=== PATIENT | male | born 1960 | race Caucasian/White ===

== ENCOUNTER 2019-05-20 09:00 | Outpatient (RCR) | payer OTHER, SELFPAY | END 2019-05-23 23:59 | LOC: DC 09:00 | PROVIDERS: PCP Family Medicine; Visit Provider Family Medicine | DX: Z71.3 Dietary counseling and surveillance (principal); E11.65 Type 2 diabetes mellitus with hyperglycemia | CPT/HCPCS: 97802; G0108 ==

== ENCOUNTER → 2022-04-23 | Outpatient (CLI) | payer OTHER, SELFPAY | END | disposition home or self-care (01) | PROVIDERS: PCP Family Medicine; Referring Provider Internal Medicine Cardiovascular Disease; Visit Provider Internal Medicine Cardiovascular Disease | DX: I49.3 Ventricular premature depolarization (principal) | CPT/HCPCS: 93225; 93226 ==

== ENCOUNTER → 2022-05-02 | Outpatient (CLI) | payer OTHER, SELFPAY ==
--- NOTE | 2022-05-02 06:40 | ECHOCS_ITS ---
Reason For Study: Arrhythmia Procedure This was a 2D Doppler, Color Flow transthoracic echocardiogram. The study was technically difficult. Contrast injection was performed. Exam performed in department. Left Ventricle Normal LV size. Mild concentric left ventricular hypertrophy. Left ventricular systolic function is normal. The estimated ejection fraction is 55 %. No regional wall motion abnormalities noted. Right Ventricle Normal RV size. Normal systolic function. Atria Normal left atrium. Normal right atrium. Mitral Valve Normal mitral valve. Tricuspid Valve Normal tricuspid valve. Mild tricuspid valve insufficiency. Pulmonary artery systolic pressure is 24 mmHg. Aortic Valve Trisinus/trileaflet aortic valve. Pulmonic Valve Normal pulmonic valve. Great Vessels Normal aortic root. The pulmonary artery is normal size. Normal inferior vena cava. Pericardium/Pleural No pericardial effusion. Medication 20 gauge I.V. with prn adaptor inserted into right arm. Diluted definity 1.5ml given slow IV push to enhance endocardial definition. MMode/2D Measurements & Calculations LVIDd: 5.6 cm IVSd: 1.2 cm Ao root diam: 3.9 cm LVIDs: 4.2 cm LVPWd: 1.3 cm LA dimension: 3.5 cm FS: 24.4 % LAV(MOD-bp): 56.2 ml LA A4 area: 18.3 cm2 RA A4 area: 14.3 cm2 LAV(MOD-bp) Indexed: 24.0 ml/m2 LAV(MOD-sp2): 58.5 ml LAV(MOD-sp4): 46.5 ml Time Measurements MV dec time: 0.18 sec Doppler Measurements & Calculations MV E max guzman: 63.1 cm/sec Lat Peak E' Guzman: 10.0 cm/sec Med Peak E' Guzman: 8.2 cm/sec MV A max guzman: 79.9 cm/sec E/E' lat: 6.3 E/E' med: 7.7 MV E/A: 0.79 MV V2 max: 85.7 cm/sec MV P1/2t max guzman: 67.3 cm/sec Ao V2 max: 101.6 cm/sec MV max P.9 mmHg MV P1/2t: 60.2 msec Ao max P.1 mmHg MV V2 mean: 48.0 cm/sec MV dec slope: 327.4 cm/sec2 Ao V2 mean: 70.6 cm/sec MV mean P.1 mmHg Ao mean P.3 mmHg MV V2 VTI: 20.5 cm MVA(P1/2t): 3.7 cm2 Ao V2 VTI: 21.4 cm LV V1 max: 93.9 cm/sec PA V2 max: 78.7 cm/sec TR max guzman: 230.3 cm/sec LV V1 max P.6 mmHg PA V2 mean: 57.9 cm/sec TR max P.2 mmHg LV V1 mean P.1 mmHg LV V1 mean: 67.9 cm/sec LV V1 VTI: 17.9 cm ECHO/Echo Complete W/ Contrast Interpretation Summary Normal LV size. Left ventricular systolic function is normal. The estimated ejection fraction is 55 %. Mild tricuspid valve insufficiency. Pulmonary artery systolic pressure is 24 mmHg. Mild concentric left ventricular hypertrophy. Contrast injection was performed. Ordering Physician: Gume Mar Referring Physician: Nathan Harris Performed By: Austen Vogt RCS
--- NOTE | 2022-05-02 17:25 | STRESSREP ---
Stress Test Report Exercise myocardial perfusion stress test. 61-year-old man with a history of cardiac arrhythmia. Stress protocol: Resting EKG demonstrates normal sinus rhythm with a rate of 68 bpm normal intervals are noted resting blood pressure is 142/84 mmHg. The patient exercised according to the regular Julio Cesar protocol for total duration of 5 minutes and 31 seconds. The maximum heart rate attained was 150 bpm which was 95% of max impacted heart rate the maximum workload attained was 7 metabolic equivalents. At rest there were no ST or T wave changes noted to suggest ischemia. At peak exercise upsloping ST changes were noted with did not meet the criteria for ischemia. Occasional premature ventricular complexes were noted. There was a 5 beat run of a wide-complex tachycardia of approximately 150 bpm. During recovery frequent premature ventricular complexes were noted some in a pattern of bigeminy and couplets. The above were not symptomatic. The peak blood pressure was 230/64 mmHg which was a hypertensive response to exercise the test was terminated due to fatigue. Myocardial perfusion protocol. 9.6 mCi of technetium 99m sestamibi was injected at rest. The patient exercised according to regular Julio Cesar protocol for total duration of 5-1/2 minutes. At peak exercise 30.7 mCi of technetium 99m sestamibi was injected stress images were obtained stress and rest images were reconstructed and compared in the short axis vertical long and horizontal long axis. Gated images were also obtained Perfusion SPECT analysis: Review of the stress images demonstrate normal uptake of tracer noted in all areas of the myocardium. The resting images similar demonstrate normal uptake of tracer noted in all areas of the myocardium. No areas of reversibility are noted to suggest ischemia and no previous infarct is noted. Gated SPECT analysis: The gated ejection fraction is noted to be 54%. Conclusion: Normal exercise myocardial perfusion stress test with no evidence of ischemia noted at a moderate workload. Frequent premature ventricular complexes noted. No sustained ventricular tachyarrhythmia noted asymptomatic. Preserved ejection fraction.
== END | disposition home or self-care (01) ==
LOC: CVS 06:38
PROVIDERS: PCP Family Medicine; Visit Provider Internal Medicine Cardiovascular Disease
DX: I49.3 Ventricular premature depolarization (principal); R06.09 Other forms of dyspnea
CPT/HCPCS: 78452; 93017; 93306; A9500; Q9957; A4216; C8929

== ENCOUNTER → 2023-02-19 | Outpatient (CLI) | payer OTHER, SELFPAY ==
[2023-02-19 10:24] LABS: Absolute Lymphocyte Count 1.76 X10^3/uL (0.83-4.51); Absolute Neutrophil Count 3.6 X10^3/uL (2.0-7.7); Basophil# 0.04 X10^3/uL; Basophil% 0.7 % (0-1); Eosinophil# 0.07 X10^3/uL; Eosinophils% 1.2 % (0-5); Hematocrit 45.8 % (40-54); Hemoglobin 15.2 g/dL (13.0-16.5); Lymphocyte # 1.76 X10^3/ul (0.83-4.51); Lymphocyte % 28.9 % (19-41); Mean Corp Hgb Conc 33.2 g/dL (32-36); Mean Corpuscular Hgb 30.6 pg (27.0-32.0); Mean Corpuscular Volume 92.2 fL (80-94); Mean Platelet Vol. 10.5 fl (6.2-12.0); Monocyte# 0.58 X10^3/uL; Monocyte% 9.5 % (0-10); NRBC Flagged by Analyzer 0 % (0-5); Neutrophil # 3.59 X10^3/uL (2.7-7.7); Platelet Count 234 K/mm3 (150-450); RBC Distribution Width CV 12.2 % (11.6-14.6); RBC Distribution Width SD 40.8 fl (35.1-43.9); Red Blood Count 4.97 M/mm3 (4.6-6.2); White Blood Count 6.1 K/mm3 (4.4-11.0)
[2023-02-19 10:51] LABS: BNP,B-Type NATRIURETIC PEPTIDE 23.3 pg/mL (0-100)
[2023-02-19 10:56] LABS: Vitamin D,25 Hydroxy 28.2 ng/mL
[2023-02-19 11:05] LABS: Anion Gap 5 (5-15); BUN 20 mg/dL (7-18); BUN/Creat Ratio 21.7 RATIO (10-20); Calcium,Total 9.4 mg/dL (8.5-10.1); Chloride 104 mmol/L (98-107); Creatinine, Serum 0.92 mg/dL (0.70-1.30); EST Glomerular Filtration Rate 88 mL/min (>60); Est Glom Filt Rate - Afr Amer 106 mL/min (>60); Free T3 2.7 pg/mL (2.18-3.98); Glucose 136 mg/dL (74-106); Potassium 4.5 mmol/L (3.5-5.1); Sodium Level 137 mmol/L (136-145); T4 Free Direct 0.85 ng/dL (0.76-1.46); Thyroid Stim Hormone (TSH) 3.04 uIU/mL (0.358-3.74)
== END | disposition home or self-care (01) ==
LOC: LAB 09:55
PROVIDERS: PCP Family Medicine; Referring Provider Nurse Practitioner Gerontology; Visit Provider Nurse Practitioner Gerontology
DX: R53.83 Other fatigue (principal); R06.09 Other forms of dyspnea
CPT/HCPCS: 36415; 80048; 82306; 83880; 84439; 84443; 84481; 85025

== ENCOUNTER → 2023-02-27 | Outpatient (CLI) | payer OTHER, SELFPAY | END | disposition home or self-care (01) | LOC: PSN 06:40 | PROVIDERS: PCP Family Medicine; Referring Provider Nurse Practitioner Gerontology; Visit Provider Nurse Practitioner Gerontology | DX: I49.3 Ventricular premature depolarization (principal); R00.2 Palpitations | CPT/HCPCS: 93225; 93226 ==